=== PATIENT | female | born 1975 | race Caucasian/White ===

== ENCOUNTER → 2023-10-08 10:33 | Outpatient (REF) | payer OTHER, SELFPAY ==
[2023-10-08 18:10] LABS: Varicella Zoster IgG (VZV) Positive
[2023-10-11 08:02] LABS: Quantiferon Mitogen minus NIL 5.45 IU/mL; Quantiferon NIL 0.01 IU/mL; Quantiferon Plus TB1 minus NIL 0.01 IU/mL (0.00-0.34); Quantiferon TB Gold Plus Negative (Negative)
== END ==
LOC: OHS 10:33
PROVIDERS: ATTENDING PHYSICIAN Nurse Practitioner Family
DX: Z23 Encounter for immunization (principal)
CPT/HCPCS: 36415; 86480; 86787

== ENCOUNTER 2024-03-11 17:44 | Emergency (ER) | payer OTHER, SELFPAY ==
[2024-03-11 17:46] VITALS: BP 150/99
[2024-03-11 18:05] LABS: % Basophils 0.7 % (0-2); % Eosinophils 1.2 % (0-6); % Immature Granulocytes 0.3 % (0-0.5); % Lymphocytes 30.1 % (20.5-51.1); % Monocytes 7.1 % (1.7-9.3); % Neutrophils 60.6 % (42.2-75.2); Absolute Basophils 0.1 10^3/uL (0-0.2); Absolute Eosinophils 0.2 10^3/uL (0-0.7); Absolute Lymphocytes 3.9 10^3/uL (1.2-3.4); Absolute Monocytes 0.9 10^3/uL (0.1-0.6); Absolute Neutrophils 7.9 10^3/uL (1.4-6.5); Hematocrit 44.4 % (37.0-47.0); Hemoglobin 15.3 g/dL (12.0-16.0); Mean Corp Hgb Conc. 34.5 g/dL (33.0-37.0); Mean Corpuscular Hgb 29.9 pg (27.0-31.0); Mean Corpuscular Volume 86.9 fL (81.0-99.0); Mean Platelet Volume 10.1 fL (7.4-10.4); Nucleated Red Blood Cells % 0 %; Platelet Count 335 10^3/uL (130-400); Red Blood Cell Count 5.11 10^6/uL (4.20-5.40); Red Cell Dist. Width 13.1 % (11.5-14.5); White Blood Cell Count 13.1 10^3/uL (4.8-10.8)
[2024-03-11 18:19] LABS: ALT (SGPT) 28 U/L (0-35); AST (SGOT) 28 U/L (14-36); Albumin 4.8 g/dl (3.5-5.0); Alkaline Phosphatase 98 U/L (38-126); Blood Urea Nitrogen 13 mg/dl (7-17); Carbon Dioxide 24 mmol/L (22-30); Chloride 107 mmol/L (98-107); Glucose 84 mg/dl (70-99); Lipase 129 U/L (23-300); Potassium 4.1 mmol/L (3.5-5.1); Sodium 140 mmol/L (135-145); Total Bilirubin 0.5 mg/dl (0.2-1.3); Total Protein 7.6 g/dl (6.3-8.2); eGFR > 60.00
--- NOTE | 2024-03-11 18:39 | EDRN ---
Leigh RIVERO in room w/pt at this time.
[2024-03-11 19:00] LABS: HCG, Serum Qualitative Screen Negative
--- NOTE | 2024-03-11 19:41 | ED.GENMED ---
History of Present Illness
General
Chief Complaint: Abdominal Symptoms
Source: patient
Exam Limitations: none
Time Seen by Provider: 03/11/24 18:31
History of Present Illness
History of Present Illness:
This is a 48 year old female that comes in with c/o right sided abd pain. States that she started with lower abd pain and around her naval. States that she had diarrhea all day and then at 3pm the abd pain started. States that she has been
nauseated with the diarrhea. Denies any fever, chills, chest pain, SOB, vomiting, headache, dizziness, urinary burning.
Past History
Past History
ED Past Medical History: HTN, Hypercholesterolemia, NIDDM and Psychiatric (Anxiety)
ED Past Surgical History: Appendectomy and Cholecystectomy
Social History
Tobacco: Former smoker
Alcohol: Occasional
Personal:
Living: with family
Review of Systems
Review of Systems
All Other Systems: ROS reviewed and negative except as documented in HPI and ROS
Constitutional: Reports no symptoms; Denies fever or chills
EENT: Reports no symptoms
Respiratory: Reports no symptoms; Denies cough or trouble breathing
Cardiac: Reports no symptoms; Denies chest pain
ABD/GI: Reports abdominal pain, nausea and diarrhea; Denies vomiting
: Reports no symptoms; Denies dysuria, frequency or urgency
Musculoskeletal: Reports no symptoms
Skin: Reports no symptoms
Neurological: Reports no symptoms; Denies dizzy or headache
Psychiatric: Reports no symptoms
Phy Exam
General Physical Exam
General Presentation: mild distress
General age: appears stated age
General Skin: warm and dry
General Habitus: normal
General Mental: alert
General Hydration: appears well hydrated
ENT Exam
ENT Exam: TM's normal, pharynx normal and neck supple
Eye Exam
Eye Exam: EOMI
Cardiovascular Exam
Cardiovascular Exam: regular rate/rhythm, no edema, no murmur and normal peripheral pulses
Pulmonary Exam
Pulmonary Exam: lungs clear, no respiratory distress, no rales, chest non tender, no crackles, no rhonchi, no wheezing and no cough
Gastrointestinal Exam
Gastrointestinal Exam: normal bowel sounds, soft, no organomegaly, no pulsatile mass, non distended and tender (Right sided abd tenderness with palpation)
Musculoskeletal Exam
Musculoskeletal Exam: full ROM and no edema
Skin Exam
Skin Exam: normal color, warm/dry, no rash and no petechia
Psychiatric Exam
Psychiatric Exam: normal mood/affect
Course
Orders/Labs/Results
Orders:
Orders
03/11/24 17:49
Electrocardiogram (*1) Urgent
Reason for Study: Abdominal Pain
03/11/24 17:50
EKG- Treatment ONCE
03/11/24 17:53
Complete Blood Count/With Diff Urgent
Comprehensive Metabolic Panel Urgent
HCG, Serum Qualitative Screen Urgent
Comment: ADD ON
Lipase Urgent
03/11/24 18:42
Add On- LAB Urgent
Tests Added?: HCG
0.9% Sodium Chloride 1000 ml [Nss] 1,000 ml IV BOLUS
Ketorolac [Toradol] 30 mg IV NOW STA
Ondansetron Injectable [Zofran] 4 mg IV NOW STA
US Pelvis W Transvag Combined Urgent
Reason For Exam: Right lower abd pain
03/11/24 20:06
Urinalysis Reflex To Culture Urgent
Date Specimen was Collected: 03/11/24
Time Specimen was Collected: 17:50
Urine Microscopic Reflex Cult Urgent
03/11/24 22:48
CT Abd/pelvis W Iv Cont Urgent
Comment: appendectomy already
Reason For Exam: Right sided abd pain
Abnormal Lab Results
03/11/24 03/11/24
17:53 20:06
WBC 13.1 H 10^3/uL
(4.8-10.8)
Absolute Neuts (auto) 7.9 H 10^3/uL
(1.4-6.5)
Absolute Lymphs (auto) 3.9 H 10^3/uL
(1.2-3.4)
Absolute Monos (auto) 0.9 H 10^3/uL
(0.1-0.6)
Leukocyte Esterase Rfl Trace A
(Negative)
Urine Bacteria (Reflex) Few A
(Negative)
03/11/24 17:53
03/11/24 17:53
Leukocytosis, Lipase normal at 129, HCG negative. Urine negative for infection.
Vital Signs
Initial and Last Documented VS:
Initial Vital Signs
Temp Pulse Resp BP Pulse Ox
98.2 F 108 16 150/99 98
03/11/24 17:46 03/11/24 17:46 03/11/24 17:46 03/11/24 17:46 03/11/24 17:46
Last Documented Vital Signs
Temp Pulse Resp BP Pulse Ox
98.6 F 96 18 125/66 98
03/11/24 20:49 03/11/24 23:00 03/11/24 23:00 03/11/24 23:00 03/11/24 23:00
MDM/Problems Addressed
Differential Diagnosis Includes:
Renal calculus. Ovarian cyst, abd pain due to back issues, Viral syndrome
MDM/Problems Addressed:
This is a 48 year old female that comes in with c/o right lower abd pain. States that she had diarrhea all day and then around 3pm she started with abd pain on the right side. Patient has her appendix removed.
Will get labs, US, medicate for pain. and Urine.
Back into see patient. Explained that her US is normal. Her blood work shows that her WBC are slightly elevated. Urine is negative for infection. Patient states that she still has some discomfort. Will get CT scan.
Back into see patient. Reviewed the CT scan. Explained that this may be coming from her back as the nerves wrap around to the abd. This may also be a viral syndrome. Will have patient increase her water intake to 8-8oz glasses daily. Follow up
with the family doctor. Tylenol or Ibuprofen for pain. Return with any concerns.
Chronic conditions affecting care:
NA
Acute Exacerbation and/or Progression of Chronic Illness:
NA
*Radiology
Radiology exam reviewed: radiology read reviewed (US-Unremarkable ovaries bilaterally with confirmation of bilateral ovarian blood flow.. No focal uterine mass or endometrial thickening. CTNO definite cause for acute abdominal pain identified.
Status post appendectomy. Status post cholecystectomy. Fatty liver. NO bowel obstruction or bowel wall ) and all reviewed NAD by ED Provider (CT cont- wall thickening. NO obstructive urolithiasis. No free fluid or free air. )
*Pulse Oximetry
Patient hypoxic: no
*EKG
Interpreted by ED Provider?: NA
Rate: EKG- N/A
*Motor Room Controller Interpretation
Rate: Motor Room Controller- N/A
*Critical Care Note
Total Time (30-74mins, 75-104mins- exclusive of procedures): Not Applicable
ED Attending Note
-
Portions of this chart may have been created with voice recognition software.� Occasional wrong word or��sound alike� substitutions may have occurred due to the inherent limitations of voice recognition software.
Discharge Plan
Departure
Patient Disposition: Home (Routine Discharge)
Date of Disposition: 03/12/24
Time of Disposition: 00:06
Patient with high blood pressure during this ER visit?: No
Condition: Good
Covid-19: Not Applicable
Discharge Problem:
Abdominal pain
Instructions: Abdominal Pain
Referrals:
Emely Arce CRNP [Family Provider] - Follow up in 2-3 days
Activity Restrictions/Additional Instructions:
As discussed, your blood work shows that your WBC's are slightly elevated. This can go up with stress. Otherwise your blood work is normal. Your urine is negative for infection. Your Ultrasound is normal and there is good blood flow to the ovaries.
Your CT scan is negative for any acute process. This may be due to some back issues as the nerves from the back wrap around to the abdomen and you can have abdominal pain. You may use Tylenol 1000mg every 6 hours for pain and Ibuprofen 600mg every 6
hours with food for pain. Follow up with the family doctor for recheck. IF YOU HAVE INCREASED OR CHANGING PAIN, OR YOU HAVE ANY OTHER CONCERNS PLEASE RETURN TO THE EMERGENCY ROOM.
Interventions
Interventions:
*General Assessment Last Done: 03/11/24 19:59
*Neglect/Abuse Screening Last Done: 03/11/24 19:59
ED- Fall Risk Assessment Last Done: 03/11/24 19:59
*ED COVID-19 Vaccine History Last Done: 03/11/24 19:59
QS-Apwosy-Qezvavvsjl Assessment Last Done: 03/11/24 19:59
Discharge Date and Time
Print Language: IVORIAN
[2024-03-11 20:04] VITALS: BMI 39.1
[2024-03-11] MEDS: TORADOL 30 MG IV (20:21)
[2024-03-11] MEDS: NSS 1000 IV (20:21)
[2024-03-11] MEDS: ZOFRAN 4 MG IV (20:21)
[2024-03-11 20:46] LABS: Urine Albumin Negative (Neg - Trace); Urine Bilirubin Negative (Negative); Urine Character Clear (Clear); Urine Color Yellow; Urine Glucose Negative (Negative); Urine Ketone Negative (Negative); Urine Leukocyte Trace (Negative); Urine Nitrite Negative (Negative); Urine Occult Blood Negative (Negative); Urine Specific Gravity 1.025 (<1.030); Urine Urobilinogen Negative (Neg - 1+)
[2024-03-11 20:49] VITALS: BP 107/59; BP 197/59
[2024-03-11 20:52] LABS: Urine Red Blood Cell 0-2 /HPF (0-2)
[2024-03-11 20:53] LABS: Urine Bacteria Few (Negative); Urine Mucus Few
[2024-03-11 21:00] VITALS: BP 104/62
[2024-03-11 22:34] VITALS: BP 111/66
[2024-03-11 23:00] VITALS: BP 125/66
[2024-03-12] MEDS: CARAFATE SUSPENSION 1 GM PO (00:11)
[2024-03-12] MEDS: PROTONIX IV 40 MG IV (00:11)
[2024-03-12 00:44] VITALS: BP 115/68
[2024-03-12 00:50] VITALS: BP 115/68
== END 2024-03-12 00:50 | disposition home or self-care (01) ==
LOC: EMR 17:44
PROVIDERS: Student in an Organized Health Care Education/Training Program; EMERGENCY PHYSICIAN Emergency Medicine; FAMILY PHYSICIAN Nurse Practitioner Family
DX: R10.31 Right lower quadrant pain (principal)
CPT/HCPCS: 99285; 96374; 96375 ×2; 96361; 74177; 76830; 76856; 80053; 81003; 81015; 83690; 84703; 85025; 93005; Q9967